=== PATIENT | male | born 1950 | race Caucasian/White ===

== ENCOUNTER 2019-04-21 05:55 | Day surgery (SDC) | payer OTHER ==
[~2019-04-21] VITALS: Ht 170.2 cm; Wt 61.2 kg
--- NOTE | ~2019-04-21 | O ---
[facility] [place] [address] OPERATIVE REPORT Name: LILY FONTENOT Room #: DEP [facility] M..#: [id number] Admission: 04/21/19 ������������������ Attend Phys: Sidney Washburn MD Discharge: 04/21/19 ������������������ Date of : 50 Report #: [id number] THIS REPORT FOR: //name// CC: Sidney Bae DATE OF SERVICE: 04/21/2019 SURGEON: Sidney Washburn MD PREOPERATIVE DIAGNOSES: 1. Nasal deformity. 2. Nasal septal deviation. 3. Inferior turbinate hypertrophy. 4. Nasal obstruction. POSTOPERATIVE DIAGNOSES: 1. Nasal deformity. 2. Nasal septal deviation. 3. Inferior turbinate hypertrophy. 4. Nasal obstruction. OPERATION PERFORMED: 1. External rhinoplasty with tip remodeling and osteotomy. 2. Nasal septoplasty. 3. Bilateral inferior turbinate submucous dissection. INDICATIONS: The patient is a 68-year-old gentleman presenting requesting options for his nasal obstructive symptoms and in addition cosmetic rhinoplasty. This has been a long-standing problem for him and in light of the above, we discussed both septoplasty and cosmetic rhinoplasty. DESCRIPTION OF PROCEDURE: The patient was brought to the operating room and placed supine on the operating table. After adequate general anesthesia was achieved via endotracheal intubation, he was turned 90 degrees. Nasal septum, lateral wall of nose and turbinates were injected with 1% Xylocaine with 1:100,000 epinephrine, 4% cocaine pledgets were placed. He was then prepped and draped in a sterile fashion. The planned incision was then marked as a stepped incision on the columella and injected with 1% Xylocaine with 1:100,000 epinephrine. Standard injections were done over the dorsum of the nose in anticipation of rhinoplasty. The procedure began with elevation of the skin of the nose. Bilateral marginal incisions were made and joint across the midline on the columella. The skin was then elevated off the lower lateral cartilages and extended up and over the nasal tip. This [facility] [address] [place] [address] OPERATIVE REPORT Name: POLILY Micki Room #: DEP [facility] M.R.#: [id number] Admission: 04/21/19 ������������������ Attend Phys: Sidney Washburn MD Discharge: 04/21/19 ������������������ Date of : 50 Report #: [id number] was then elevated over the upper lateral cartilages and nasal dorsum. Skin was then held back. The feet of the medial crura were then reflected laterally. Dissection was made down to the nasal septum. Incisions were made on the septum and subperichondrial elevation was then made bilateral. The cartilage was then disarticulated posteriorly at the bony cartilaginous junction and a strip of cartilage was excised off the maxillary crest. Using a D knife, a cartilage graft was then harvested leaving a caudal and dorsal cartilage strut. This was placed in saline. A portion of perpendicular plate of the ethmoid and vomer were then taken down where they were deviated allowing the quadrilateral cartilage swing back to midline. Attention was then returned to the lower lateral cartilage. These were very deformed and crooked. The soft tissue adhesions and scarring were taken down off the cartilage. The cartilage graft was then cut to size, placed between the feet of the medial crura and extended onto the maxillary crest. This was then sutured in place to the feet of the medial crura with bilateral 6-0 clear nylon. Once this was inset, this gave a nice projection and rotation to the tip and corrected an old deformity of the nasal tip. At this point, bilateral marginal incisions were made leaving at least 8 mm on the caudal end of the upper lateral cartilage. Attention was then turned to the osteotomies. Medial osteotomies were made with osteotomes, right and left. Stab incisions were made in the piriform aperture and the skin of the nose as well as the mucosa intranasal were elevated off this bone so that curved lower lateral osteotomies could be made without problem with an osteotome. This allowed narrowing of the dorsum. Prior to doing this, a portion of the dorsum was then taken down lowering the size of the nose with an osteotome. Once this was completed, the nose was shaped. The crooked nose was reduced giving him a pleasing dorsal profile that was now straight. Attention was then returned to the tip. Finesse repairs were then made on the upper lateral cartilage creating a double break with 6-0 clear nylon on the nasal tip. Care was taken to be sure this was symmetric. The skin was then redraped and examined back and forth. Small refinements were made in the nasal dorsum and nasal tip until I was satisfied that this was a pleasing profile, straight and a corrected nasal tip. Once this was completed, the columellar incision was closed with interrupted 5-0 black nylon. The marginal incision was closed with interrupted 4-0 chromic and then the nasal septum was reapproximated. Mucoperichondrium was reapproximated with a 4-0 chromic basting stitch. Inferior turbinates were then fractured medially. The anterior end was opened. A submucous dissection was done on the bone. The edges were reapproximated. A straight shot turbinate blade was used to reduce the volume of the inferior turbinate. At this point, the patient was left with a nasal septal correction that was straight, reduce turbinates as well as a corrected nasal dorsum, especially the tip, crookedness, over-projection and wideness. At this point, the skin was cleaned, prepped with Mastisol and 1/2-inch Steri-Strips applied followed by an Aquaplast cast. No other packing was needed. 1 x 3 cottonoids were placed in the nose for transfer from the [facility] [address] [place] [address] OPERATIVE REPORT Name: POLILY Micki Room #: DEP [facility] Shara#: [id number] Admission: 04/21/19 ������������������ Attend Phys: Sidney Washburn MD Discharge: 04/21/19 ������������������ Date of : 50 Report #: [id number] operating room to recovery room and removed promptly in the recovery room. The patient will be watched until awake and stable. Presuming he does well, he may be discharged to home. The patient was watched carefully for his bifascicular block and bradycardia per recommendations of his bilingual receptionist. There was no difficulty intraoperatively. The patient will plan to follow up with me in 1 week for takedown of his stitches and nasal dorsal cast. He is instructed to keep this dry. DISCHARGE MEDICATIONS: Will include amoxicillin 500 mg 1 t.i.d. for 10 days, hydrocodone/acetaminophen 7.5/325 one to two q. 4-6 hours p.r.n., Phenergan suppository 25 mg 1 per rectum q. 4-6 hours p.r.n. and bacitracin ointment on the nasal sutures b.i.d. He is instructed on light activity and a soft diet. ��������������������������������������������� ���������������������������������������� By: ��������������������������������������������� [id number] Sidney Washburn MD /nt
[~2019-04-21 05:55] MED LIST: CARDIOSTEROL C1 EACH PO; CARDIOTABS PO; VIAGRA100 MG PO
[2019-04-21 12:53] VITALS: BP 129/65
[2019-04-21 15:52] VITALS: BP 129/65
== END 2019-04-21 17:54 | disposition home or self-care (01) ==
LOC: TBA 05:55 → OR 05:55 → TBA 05:56 → OR 06:23
DX: J34.2 Deviated nasal septum (principal); J34.89 Other specified disorders of nose and nasal sinuses; J34.3 Hypertrophy of nasal turbinates; M95.0 Acquired deformity of nose; Z87.891 Personal history of nicotine dependence; I45.10 Unspecified right bundle-branch block; R00.1 Bradycardia, unspecified; Z98.890 Other specified postprocedural states; Z79.899 Other long term (current) drug therapy
CPT/HCPCS: 50010; 50101; 50386; 50398; 51313; 51634; 56527; 56528; 57006; 62110; 62900; 70005